=== PATIENT | male | born 1995 | race Caucasian/White ===

== ENCOUNTER 2018-08-26 18:27 | Emergency (ER) | payer SELFPAY ==
[~2018-08-26] VITALS: Ht 185.4 cm; Wt 83.9 kg
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
[2018-08-26] MEDS ORDERED: NKM (18:44)
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
[2018-08-26 19:15] VITALS: BP 128/68
[2018-08-26 19:16] VITALS: BP 128/68
--- NOTE | 2018-08-26 19:17 | NUR ---
ER DISCHARGE NOTE: Patient is cleared to be discharged per SORAYA SEBASTIAN , pt is aox4, on room air, with stable vital signs. pt was given dc instructions and medically cleared. patient is being carried with [facility].
== END 2018-08-26 19:18 | disposition home or self-care (01) ==
LOC: EDBD 18:27 → EMR 18:45
DX: S01.511A Laceration without foreign body of lip, initial encounter (principal); Z53.20 Procedure and treatment not carried out because of patient's decision for unspecified reasons; X58.XXXA Exposure to other specified factors, initial encounter; Y92.9 Unspecified place or not applicable; R45.1 Restlessness and agitation
CPT/HCPCS: 99282